=== PATIENT | male | born 1965 | race Caucasian/White ===

== ENCOUNTER → 2016-08-22 | Outpatient (CLI) | payer OTHER ==
--- NOTE | 2016-08-22 17:43 | DX ---
Left knee, 5 views. August 22, 2016. HISTORY: Knee pain. FINDINGS: Normal alignment. Joint spaces are maintained. No fracture or joint effusion. IMPRESSION: 1. Negative left knee radiographs.
== END ==
LOC: BMCIMAGING 17:08
PROVIDERS: ATTEND Family Medicine
DX: M25.562 Pain in left knee (principal)

== ENCOUNTER → 2017-05-10 | Outpatient (CLI) | payer OTHER | LOC: BMCIMAGING 12:04 | PROVIDERS: ATTEND Otolaryngology | DX: M50.31 Other cervical disc degeneration, high cervical region (principal); M50.33 Other cervical disc degeneration, cervicothoracic region; M43.12 Spondylolisthesis, cervical region; Z98.1 Arthrodesis status ==

== ENCOUNTER 2017-07-13 11:29 | Day surgery (SDC) | payer OTHER ==
[2017-07-13] MEDS ORDERED: OXYMETAZOLINE 30 ML NASAL SPRAY ONE (12:01)
[2017-07-13] MEDS ORDERED: LIDOCAINE 1% 2 ML INJ ID PRN (12:08)
[2017-07-13] MEDS ORDERED: LR 1,000 ML IV ONE (12:08)
[2017-07-13] MEDS ORDERED: MIDAZOLAM 2 MG/2 ML VIAL IVP ONE (13:09)
--- NOTE | 2017-07-13 13:09 | PDGENHP ---
History and Physical - Chief Complaint Hoarseness - History of Present Illness Left Vocal cord mass. History Information - Allergies/Home Medication List Allergies/Adverse Reactions: No Known Allergies Allergy (Verified 07/02/17 17:01) Home Medications: Fexofenadine HCl [Betty] 60 mg PO 10/01/12 [Last Taken 07/13/17] Fluticasone Nasal [Flonase Nasal [place] (RX)] 2 sprays NASAL DAILY 10/01/12 [ Last Taken 07/13/17] Olopatadine HCl 07/02/17 [Last Taken 07/13/17] Ranitidine HCl 07/02/17 [Last Taken 07/13/17] I have personally reviewed and updated: medical history, social history, surgical history - Surgical History Reports: spinal surgery Additional surgical history: knee surgery. Septoplasty. Sinus surgery - Social History Smoking Status: Never smoked Review of Systems Review of Systems: ROS: 2-9 pt reviewed & negative except for what was stated in HPI & below Physical Exam Physical Exam: Temp Pulse Resp BP Pulse Ox 36.4 C 61 16 127/79 H 96 07/13/17 12:14 07/13/17 12:14 07/13/17 12:14 07/13/17 12:14 07/13/17 12:14 Constitutional: no apparent distress Eyes: PERRL Ears, Nose, Mouth, Throat: moist mucous membranes, other (Hoarseness) Cardiovascular: regular rate and rhythym Respiratory: no respiratory distress Skin: warm, normal color Neurologic: AAOx3 Psychiatric: interacting appropriately Assessment & Plan Assessment: Left vocal cord mass. Plan: Direct microlaryngoscopy with biopsy.
--- NOTE | 2017-07-13 13:10 | PDANEPAE ---
ANE History of Present Illness left vocal cord mass ANE Past Medical History - Cardiovascular History Hx Hypertension: No Hx Arrhythmias: No Hx Chest Pain: No Hx Coronary Artery / Peripheral Vascular Disease: No Hx CHF / Valvular Disease: No Hx Palpitations: No - Pulmonary History Hx COPD: No Hx Asthma/Reactive Airway Disease: No Hx Recent Upper Respiratory Infection: No Hx Oxygen in Use at Home: No Hx Sleep Apnea: No Sleep Apnea Screening Result - Last Documented: Negative - Neurologic History Hx Cerebrovascular Accident: No Hx Seizures: No Hx Dementia: No - Endocrine History Hx Diabetes: No Obesity: no - Renal History Hx Renal Disorders: No - Liver History Hx Hepatic Disorders: No - Neurological & Psychiatric Hx Hx Neurological and Psychiatric Disorders: No - Cancer History Hx Cancer: No - Congenital Disorder History Hx Congenital Disorders: No - GI History Hx Gastrointestinal Disorders: Yes Gastrointestinal History Comment: acid reflux-on RX - Other Health History Other Health History: seasonal allergies. Mass in throat-below vocal cord - Chronic Pain History Chronic Pain: No - Surgical History Prior Surgeries: L and R knee scopes '17. C3-C7 cervical fusion ANE Review of Systems Review of systems is: negative Review of Systems: - Exercise capacity METS (RN): 5 METS ANE Patient History - Allergies Allergies/Adverse Reactions: No Known Allergies Allergy (Verified 07/02/17 17:01) - Home Medications Home medications: home medication list seen and reviewed Home Medications: Fexofenadine HCl [Betty] 60 mg PO 10/01/12 [Last Taken 07/13/17] Fluticasone Nasal [Flonase Nasal [place] (RX)] 2 sprays NASAL DAILY 10/01/12 [ Last Taken 07/13/17] Olopatadine HCl 07/02/17 [Last Taken 07/13/17] Ranitidine HCl 07/02/17 [Last Taken 07/13/17] - NPO status NPO Since - Liquids (Date): 07/13/17 NPO Since - Liquids (Time): 04:00 NPO Since - Solids (Date): 07/12/17 NPO Since - Solids (Time): 19:00 - Anes Hx Anes Hx: no prior problems - Smoking Hx Smoking Status: Never smoked ANE Labs/Vital Signs - Vital Signs Blood Pressure: 127/79 Heart Rate: 61 Respiratory Rate: 16 O2 Sat (%): 96 Height: 177.8 cm Weight: 77.111 kg ANE Physical Exam - Airway Neck exam: FROM Mallampati Score: Class 1 Mouth exam: normal dental/mouth exam - Pulmonary Pulmonary: no respiratory distress - Cardiovascular Cardiovascular: regular rate and rhythym - ASA Status ASA Status: II ANE Anesthesia Plan Anesthesia Plan: general endotracheal anesthesia
[2017-07-13] MEDS ORDERED: REMIFENTANIL HCL 1 MG VIAL ONE (13:14)
[2017-07-13] MEDS ORDERED: fentaNYL 100 MCG/2 ML INJ ONE (13:14)
[2017-07-13] MEDS ORDERED: PROPOFOL/EMULSION 500 MG/50 ML BOTTLE IV ONE (13:14)
[2017-07-13] MEDS ORDERED: LIDOCAINE 2% 5 ML SDV ONE (13:21)
[2017-07-13] MEDS ORDERED: ACETAMINOPHEN 500 MG TAB PO PRN (13:59)
[2017-07-13] MEDS ORDERED: PROMETHAZINE HCL 25 MG/ML INJ IVP PRN (13:59)
[2017-07-13] MEDS ORDERED: HYDROCODONE/APAP 5/325 TAB PO PRN (13:59)
[2017-07-13] MEDS ORDERED: LR 500 ML IV PRN (13:59)
[2017-07-13] MEDS ORDERED: NALOXONE HCL 0.4 MG/ML INJ IVP PRN (13:59)
[2017-07-13] MEDS ORDERED: fentaNYL 100 MCG/2 ML INJ IVP PRN (13:59)
[2017-07-13] MEDS ORDERED: ONDANSETRON 4 MG/2 ML VIAL IVP PRN (13:59)
[2017-07-13] MEDS ORDERED: OXYCODONE/APAP 5/325 TAB PO PRN (13:59)
[2017-07-13] MEDS ORDERED: ALBUTEROL 3 ML DEYVIAL IH PRN (13:59)
[2017-07-13] MEDS ORDERED: HYDROmorphONE/DILAUDID 1 MG/ML INJ IVP PRN (13:59)
--- NOTE | 2017-07-13 14:11 | POSTOPPROG ---
Post Op Note Date of Operation: 07/13/17 Surgeon: Layo Millan Anesthesia: GET(General Endotracheal) Pre-op Diagnosis: L vocal cord mass Post-op Diagnosis: L vocal cord mass Indication: L vocal cord mass Procedure: L vocal cord mass biopsy Findings: L vocal cord mass Inf/Abcess present in the surg proc area at time of surgery?: No Depth: Superfical (Skin SQ) EBL: Minimal Complications: none Specimen(s): L posterior vocal cord mass
--- NOTE | 2017-07-13 14:28 | POSTANESTH ---
Post Anesthetic Evaluation Cardiovascular Status: Normal, Stable Respiratory Status: Normal, Stable Level of Consciousness/Mental Status: Can Participate in Eval Pain Control: Adequate, Prn Tx Ordered Nausea/Vomiting Control: Adequate, Prn Tx Ordered Complications Possibly Related to Anesthesia: None Noted
[2017-07-13 14:58] VITALS: RESP 16
[2017-07-13 15:19] VITALS: BP 127/80; PULSE 59; TEMP 97.9; O2SAT 99
== END 2017-07-13 15:10 | disposition home or self-care (01) ==
LOC: FSGY 11:29
PROVIDERS: ATTEND Otolaryngology
PROC: 0CBV8ZX Excision of Left Vocal Cord, Via Natural or Artificial Opening Endoscopic, Diagnostic (ICD-10-PCS; principal; 2017-07-13 13:15)
DX: J38.3 Other diseases of vocal cords (principal)
CPT/HCPCS: J0171; J2250; J2704; J3010

== ENCOUNTER → 2017-11-09 | Outpatient (CLI) | payer OTHER ==
--- NOTE | 2017-11-09 11:27 | CPEKG ---
Heart Rate: 76 RR Interval: 789 P-R Interval: 132 QRSD Interval: 78 QT Interval: 384 QTC Interval: 432 P Vail: 74 QRS Vail: 77 T Wave Vail: 20 EKG Severity - NORMAL ECG - EKG Impression: SINUS RHYTHM Electronically Signed By: Juan Jose Carpenter 09-Nov-2017 14:18:38
== END ==
LOC: FCP 11:05
PROVIDERS: ATTEND Physician Assistant Surgical
DX: Z13.6 Encounter for screening for cardiovascular disorders (principal)

== ENCOUNTER 2018-12-02 14:36 | Emergency (ER) | payer OTHER ==
[2018-12-02] MEDS ORDERED: MECLIZINE HCL 25 MG TAB PO ONE (15:16)
[2018-12-02] MEDS ORDERED: ONDANSETRON DISINTEGRATING 4 MG TAB PO ONE (15:16)
--- NOTE | 2018-12-02 15:18 | EDPHY ---
H & P Stated Complaint: dizziness since yesterday made worse by movement, nausea Time Seen by Provider: 12/02/18 14:56 HPI/ROS: CHIEF COMPLAINT: Vertigo HISTORY OF PRESENT ILLNESS: The patient presents to the ED with symptoms consistent with acute peripheral vertigo that began yesterday. The patient describes positional vertigo which is worsened with head movement. The patient denies any history of fall or trauma. He denies headache. He denies neck pain or history of cervical manipulation. The patient takes no anticoagulants. He is not had upper respiratory infection. He denies tinnitus or hearing loss. The patient does suffer from seasonal allergies which are at baseline. The patient does report associated nausea. He also reports associated disequilibrium. REVIEW OF SYSTEMS: A comprehensive 10 point review of systems is otherwise negative aside from elements mentioned in the history of present illness. Source: Patient, Family - Personal History Current Tetanus/Diphtheria Vaccine: Yes Current Tetanus Diphtheria and Acellular Pertussis (TDAP): Yes Tetanus Vaccine Date: 2012 - Medical/Surgical History Hx Asthma: No Hx Chronic Respiratory Disease: No Hx Diabetes: No Hx Cardiac Disease: No Hx Renal Disease: No Hx Cirrhosis: No Hx Alcoholism: No Hx HIV/AIDS: No Hx Splenectomy or Spleen Trauma: No Other PMH: LEFT KNEE DISECTOMY, 2 X C 3-7 FUSIONS - Social History Smoking Status: Never smoked - Physical Exam Exam: General Appearance: Alert, no distress Eyes: Pupils equal and round no pallor or injection ENT, Mouth: Mucous membranes moist Respiratory: There are no retractions, lungs are clear to auscultation Cardiovascular: Regular rate and rhythm Gastrointestinal: Abdomen is soft and nontender, no masses, bowel sounds normal Neurological: A&O, normal motor function, normal sensory exam, normal cranial nerves, horizontal nystagmus greatest with leftward gaze Skin: Warm and dry, no rashes Musculoskeletal: Neck is supple nontender Extremities: symmetrical, full range of motion Psychiatric: Patient is oriented X 3, there is no agitation Constitutional: Initial Vital Signs Temperature (C) 36.6 C 12/02/18 14:44 Heart Rate 78 12/02/18 14:44 Respiratory Rate 16 12/02/18 14:44 Blood Pressure 134/78 H 12/02/18 14:44 O2 Sat (%) 95 12/02/18 14:44 O2 Delivery Mode Room Air Allergies/Adverse Reactions: No Known Allergies Allergy (Verified 07/02/17 17:01) Home Medications: Medication Instructions Recorded Fexofenadine HCl [Betty] 60 mg PO 10/01/12 Fluticasone Nasal [Flonase Nasal 2 sprays NASAL DAILY 10/01/12 [place]] Olopatadine HCl 07/02/17 Ranitidine HCl 07/02/17 Diazepam [Valium 5 MG (*)] 5 mg PO TID PRN #15 tab 12/02/18 Ipratropium 12/02/18 Meclizine HCl [Meclizine HCl 25 mg 25 mg PO BID PRN #20 tab 12/02/18 (RX,OTC)] Ondansetron Odt [Zofran Odt] 4 mg PO Q4PRN PRN #20 tab 12/02/18 Medical Decision Making ED Course/Re-evaluation: Patient presents the ED with a normal neurologic examination aside from symptoms consistent with benign positional vertigo. The patient does have a positive Deonna-Hallpike test with leftward gaze. Reese maneuver was administered in the emergency department after treatment with 4 mg of Zofran ODT and 25 mg of meclizine. I did attempt the Reese without significant improvement of symptoms. The patient is comfortable going home with a prescription for meclizine, Zofran and Valium. He will perform the Reese maneuver at home. He has also been referred to our on-call ENT physician for unimproved symptoms. The patient is discharged home with customary aftercare instructions and return precautions. Differential Diagnosis: Differential diagnosis considered includes benign positional vertigo, labyrinthitis - Data Points Medications Given: Discontinued Medications Meclizine HCl (Meclizine Hcl) 25 mg PO EDNOW ONE Stop: 12/02/18 15:17 Last Admin: 12/02/18 15:19 Dose: 25 mg Ondansetron HCl (Zofran Odt) 4 mg PO EDNOW ONE Stop: 12/02/18 15:17 Last Admin: 12/02/18 15:19 Dose: 4 mg Departure - Departure Disposition: Home, Routine, Self-Care Clinical Impression: BPV (benign positional vertigo) Qualifiers: Laterality: left Qualified Code(s): H81.12 - Benign paroxysmal vertigo, left ear Condition: Good Instructions: Benign Paroxysmal Positional Vertigo (ED) Additional Instructions: 1. Meclizine as needed for dizziness. 2. Zofran as needed for nausea. 3. Valium as needed for vertigo that is severe. 4. Reese maneuver as instructed home. 5. Follow up with the Ear Nose Throat specialist you have been referred to for any unimproved symptoms. 6. Return to the ED for severe headache, any numbness, weakness in arms or legs , difficulty with speech or other concerns. Referrals: Maryana White MD [Medical Doctor] - As per Instructions
[2018-12-02 16:20] VITALS: BP 143/93
== END 2018-12-02 16:21 | disposition home or self-care (01) ==
DX: H81.12 Benign paroxysmal vertigo, left ear (principal)